=== PATIENT | male | born 1940 | race Two or more races ===

== ENCOUNTER 2025-08-26 12:16 | Inpatient (IN) | payer BC, MEDICAID, MEDICARE ==
[~2025-08-26] VITALS: Ht 188 cm; Wt 104.3 kg
[2025-08-26 12:18] VITALS: O2SAT 95
[2025-08-26] MEDS: SODIUM CHLORIDE 0.9% (SEPSIS BOLUS) IV ONE (13:04)
[2025-08-26 13:23] LABS: BASOPHILS % 0.5 % (0.0-2.0); EOSINOPHILS % 0.6 % (0.0-5.0); HEMATOCRIT. 46.6 % (42.0-52.0); HEMOGLOBIN. 15.4 g/dL (14.0-18.0); LYMPHOCYTES % 15.0 % (20.0-50.0); MEAN PLATELET VOLUME 11.2 fl (7.4-10.4); MONOCYTES % 5.5 % (2.0-8.0); NEUTROPHILS % 78.4 % (40.0-76.0); PLATELET 105 x1000/uL (130-400); RED BLOOD CELL COUNT 4.72 mill/uL (4.7-6.1); RED CELL DISTRIBUTION WIDTH 14.5 % (11.6-14.6)
[2025-08-26 13:42] LABS: CREATININE 1.5 mg/dL (0.6-1.3); UREA NITROGEN BLOOD 7 mg/dL (9-23)
[2025-08-26 13:43] LABS: PROTEIN TOTAL 6.5 g/dL (6.0-8.3)
[2025-08-26] MEDS: CEFTRIAXONE 1GM/50ML 50 ML IV ONE (13:43)
[2025-08-26 13:44] LABS: ASPARTATE AMINOTRANSFERASE 15 IU/L (<34); BILIRUBIN DIRECT 0.5 mg/dL (<=3.0); BILIRUBIN TOTAL 1.3 mg/dL (0.1-1.0)
[2025-08-26] MEDS: AZITHROMYCIN 500MG/250ML 250 ML IV ONE (13:56)
[2025-08-26 16:35] LABS: TROPONIN I HIGH SENSITIVITY 17 ng/L (3.0-53)
[2025-08-26 16:44] LABS: INR 1.3
[2025-08-26] MEDS ORDERED: DOCUSATE SODIUM 100MG CAPSULE PO PRN (17:15)
[2025-08-26] MEDS ORDERED: GUAIFENESIN 200MG/10ML SUGAR FREE UDC PO PRN (17:15)
[2025-08-26] MEDS ORDERED: LORAZEPAM 0.5MG TABLET PO PRN (17:15)
[2025-08-26] MEDS ORDERED: ACETAMINOPHEN 325MG TABLET PO PRN ×2 (17:15)
[2025-08-26] MEDS ORDERED: ONDANSETRON HCL 4MG/2ML INJ IV PRN (17:15)
[2025-08-26] MEDS ORDERED: IPRATROPIUM/ALBUTEROL 0.5-3(2.5)MG/3ML NEB HHN PRN (17:15)
[2025-08-26 20:07] LABS: LDL CHOLESTEROL 70.0 mg/dL (5-100); TRIGLYCERIDE 92.0 mg/dL (0-150)
[2025-08-26 20:11] LABS: T4 FREE 1.09 ng/dL (0.89-1.76)
[2025-08-26 20:12] LABS: FOLIC ACID (FOLATE) SERUM 6.98 ng/mL (>5.38); VITAMIN B12 SERUM 372 pg/mL (211-911)
[2025-08-26 20:39] VITALS: BP 136/77; PULSE 80; RESP 15; TEMP 36.8; O2SAT 98
[2025-08-26 21:20] VITALS: BP 136/77; PULSE 88; RESP 24; TEMP 36.8628
[2025-08-26] MEDS: SODIUM CHLORIDE 0.9% 1,000 ML IV SCH (21:53)
[2025-08-26] MEDS: APIXABAN 2.5 MG TABLET PO SCH (21:53)
[2025-08-26] MEDS ORDERED: OMEP40CA20 MT (22:30)
[2025-08-26] MEDS ORDERED: TERA10CA4 MT (22:30)
[2025-08-26] MEDS ORDERED: MIRA25TA MT (22:30)
[2025-08-26] MEDS ORDERED: LEVO25TA7 MT (22:30)
[2025-08-26] MEDS ORDERED: APIX2.5T MT (22:30)
[2025-08-26] MEDS ORDERED: HYDR-4009 MT (22:30)
[2025-08-26] MEDS ORDERED: LISI40TA21 MT (22:30)
[2025-08-26] MEDS ORDERED: SITA100T11 MT (22:30)
[2025-08-26] MEDS ORDERED: DEXTROSE 50% WATER 50ML SYRINGE IV PRN (22:45)
[2025-08-26 23:12] LABS: COLOR URINE YELLOW (YELLOW); GLUCOSE URINE NEGATIVE (NEGATIVE); KETONES URINE NEGATIVE (NEGATIVE); LEUKOCYTE ESTERASE URINE NEGATIVE (NEGATIVE); NITRITE URINE NEGATIVE (NEGATIVE); OCCULT BLOOD URINE NEGATIVE (NEGATIVE); PH URINE 5.0 (4.5-8.0); PROTEIN URINE 1+ (NEGATIVE); SPECIFIC GRAVITY URINE 1.024 (1.005-1.030); UROBILINOGEN URINE 1.0 E.U./dL (0.2-1.0)
[2025-08-26 23:28] LABS: CLARITY URINE SL HAZY (CLEAR); RBC URINE NONE SEEN /hpf (0-2)
[2025-08-26 23:29] LABS: BACTERIA URINE NONE SEEN; MUCUS URINE TRACE /lpf (NONE/TRACE); SQUAMOUS EPITHELIAL CELL URINE RARE /lpf (RARE/1+)
[2025-08-27] VITALS: BP 141/89; PULSE 84; RESP 15; TEMP 36.8; O2SAT 99
[2025-08-27 04:00] VITALS: BP 154/85; PULSE 85; RESP 16; TEMP 36.8; O2SAT 98
[2025-08-27] MEDS: BLOOD SUGAR DIAGNOSTIC STRIP TEST SCH (06:08)
[2025-08-27] MEDS: INSULIN LISPRO 100 UNITS/ML SUBCUT SCH (06:26)
[2025-08-27 07:20] LABS: CREATININE 1.2 mg/dL (0.6-1.3)
[2025-08-27 07:21] LABS: UREA NITROGEN BLOOD 6 mg/dL (9-23)
[2025-08-27 07:23] LABS: PHOSPHORUS 2.3 mg/dL (2.5-4.9)
[2025-08-27 07:24] LABS: TROPONIN I HIGH SENSITIVITY 24 ng/L (3.0-53)
[2025-08-27 07:26] LABS: BASOPHILS % 0.5 % (0.0-2.0); EOSINOPHILS % 2.1 % (0.0-5.0); HEMATOCRIT. 42.1 % (42.0-52.0); HEMOGLOBIN. 14.0 g/dL (14.0-18.0); LYMPHOCYTES % 33.1 % (20.0-50.0); MEAN PLATELET VOLUME 11.5 fl (7.4-10.4); MONOCYTES % 9.7 % (2.0-8.0); NEUTROPHILS % 54.6 % (40.0-76.0); PLATELET 101 x1000/uL (130-400); RED BLOOD CELL COUNT 4.32 mill/uL (4.7-6.1); RED CELL DISTRIBUTION WIDTH 14.3 % (11.6-14.6)
[2025-08-27 08:00] VITALS: BP 153/78; PULSE 88; RESP 17; TEMP 36.5; O2SAT 99
[2025-08-27 09:37] LABS: TROPONIN I HIGH SENSITIVITY 27 ng/L (3.0-53)
[2025-08-27 12:00] VITALS: BP 165/90; PULSE 82; RESP 21; TEMP 36.6; O2SAT 96
[2025-08-27] MEDS: MAGNESIUM 2 G PREMIX 50 ML IV NR (12:25)
[2025-08-27 16:00] VITALS: BP 144/70; PULSE 69; RESP 18; TEMP 36.8; O2SAT 97
[2025-08-27] MEDS: SODIUM CHLORIDE 0.45% 1,000 ML IV SCH (17:50)
[2025-08-27 20:00] VITALS: BP 155/88; PULSE 70; RESP 17; TEMP 36.8; O2SAT 96
[2025-08-27] MEDS: TERAZOSIN HCL 5MG CAPSULE PO SCH (21:17)
[2025-08-28] VITALS (7 sets, daily range): BP systolic 126–199; BP diastolic 70–118; PULSE 70–77; RESP 10–26; TEMP 36.6–36.8; O2SAT 93–100
[2025-08-28] MEDS: LEVOTHYROXINE SODIUM 25MCG TABLET PO SCH (06:18)
[2025-08-28] MEDS: LISINOPRIL 40MG TABLET PO SCH (10:13)
[2025-08-28] MEDS: CLONIDINE 0.1MG TABLET PO PRN (10:16)
[2025-08-28 10:30] LABS: BASOPHILS % 0.7 % (0.0-2.0); EOSINOPHILS % 2.0 % (0.0-5.0); HEMATOCRIT. 44.6 % (42.0-52.0); HEMOGLOBIN. 14.9 g/dL (14.0-18.0); LYMPHOCYTES % 27.6 % (20.0-50.0); MEAN PLATELET VOLUME 12.4 fl (7.4-10.4); MONOCYTES % 9.3 % (2.0-8.0); NEUTROPHILS % 60.4 % (40.0-76.0); PLATELET 107 x1000/uL (130-400); RED BLOOD CELL COUNT 4.59 mill/uL (4.7-6.1); RED CELL DISTRIBUTION WIDTH 14.4 % (11.6-14.6)
[2025-08-28 10:37] LABS: CREATININE 1.2 mg/dL (0.6-1.3); UREA NITROGEN BLOOD 6.0 mg/dL (9-23)
[2025-08-28] MEDS: AMLODIPINE 5MG TABLET PO SCH (15:28)
[2025-08-29] VITALS: BP 104/55; PULSE 64; RESP 11; TEMP 36.6; O2SAT 96
[2025-08-29 04:00] VITALS: BP 117/57; PULSE 70; RESP 13; TEMP 36.6; O2SAT 99
[2025-08-29 08:00] VITALS: BP_SYST 136; BP_SYST 160; BP_SYST 164; BP_DIAS 103; BP_DIAS 104; BP_DIAS 82; PULSE 72; RESP 19; TEMP 36.6; O2SAT 100
[2025-08-29] MEDS ORDERED: AMLO5TAB88 MT (11:25)
[2025-08-29 12:00] VITALS: BP 113/96; PULSE 70; RESP 14; TEMP 36.7; O2SAT 100
[2025-08-29 12:41] VITALS: BP 113/96; PULSE 70; RESP 14; TEMP 98.1
[2025-08-29] MEDS ORDERED: AMLODIPINE 5MG TABLET PO SCH (21:00)
[2025-08-30 09:10] LABS: PROSTATE SPECIFIC AG TOTAL 26.5 ng/mL (0.0-4.0)
[2025-08-31 04:07] LABS: VITAMIN D 25-OH 26.5 ng/mL (30.0-100.0)
== END 2025-08-29 13:20 | disposition home or self-care (01) | DRG 641 ==
LOC: ER 12:16 → EDBEDREQ 16:42 → EDBEDREQTM 16:42 → ENRESERV 20:07 → 3WST 20:27
PROVIDERS: ADMIT Internal Medicine; ATTEND Internal Medicine
DX: E86.0 Dehydration (principal); E87.20 Acidosis, unspecified; N17.9 Acute kidney failure, unspecified; Z79.01 Long term (current) use of anticoagulants; E11.9 Type 2 diabetes mellitus without complications; I10 Essential (primary) hypertension; I69.30 Unspecified sequelae of cerebral infarction; I48.19 Other persistent atrial fibrillation; I95.9 Hypotension, unspecified; E83.42 Hypomagnesemia; N32.81 Overactive bladder; F41.9 Anxiety disorder, unspecified; T50.995A Adverse effect of other drugs, medicaments and biological substances, initial encounter; Y92.89 Other specified places as the place of occurrence of the external cause
CPT/HCPCS: 36415; 71045; 76870; 80048; 80061; 80076; 81003; 82306; 82607; 82746; 82962; 83036; 83605; 83735; 84100; 84145; 84153; 84439; 84443; 84484; 85025; 85379; 86850; 86900; 93005; 93306; 93880; 93976; 97166; 99291; J0456; J0696; J3475; J7030